=== PATIENT | male | born 1990 | race Caucasian/White ===

== ENCOUNTER 2025-05-25 03:47 | Emergency (ER) | payer BC ==
[~2025-05-25] VITALS: Ht 172.7 cm; Wt 113.0 kg
[2025-05-25 03:49] VITALS: TEMP 36.9; O2SAT 99
[2025-05-25 04:28] LABS: BASOPHILS % 0.4 % (0.0-2.0); EOSINOPHILS % 0.1 % (0.0-5.0); HEMATOCRIT. 31.8 % (42.0-52.0); HEMOGLOBIN. 9.4 g/dL (14.0-18.0); LYMPHOCYTES % 23.4 % (20.0-50.0); MEAN PLATELET VOLUME 9.1 fl (7.4-10.4); MONOCYTES % 5.1 % (2.0-8.0); NEUTROPHILS % 71.0 % (40.0-76.0); PLATELET 322 x1000/uL (130-400); RED BLOOD CELL COUNT 5.14 mill/uL (4.7-6.1); RED CELL DISTRIBUTION WIDTH 19.7 % (11.6-14.6)
[2025-05-25 04:50] LABS: ADD RBC MORPHOLOGY YES
[2025-05-25] MEDS: SODIUM CHLORIDE 0.9% 1,000 ML IV ONE (04:54)
[2025-05-25] MEDS: DIAZEPAM 5 MG/ML 2ML SYR IV ONE ×2 (04:54→06:13)
[2025-05-25 05:33] LABS: CREATININE 1.4 mg/dL (0.6-1.3); UREA NITROGEN BLOOD 16.0 mg/dL (9-23)
[2025-05-25 06:37] VITALS: BP 160/101; PULSE 109; RESP 19; O2SAT 95
[2025-05-25] MEDS ORDERED: FERR1TAB91 MT (06:58)
[2025-05-25] MEDS ORDERED: AMLO5TAB88 MT (06:59)
[2025-05-25 08:28] LABS: PLATELET ESTIMATE NORMAL
== END 2025-05-25 07:14 | disposition home or self-care (01) ==
LOC: ER 03:47
DX: T40.5X1A Poisoning by cocaine, accidental (unintentional), initial encounter (principal); I10 Essential (primary) hypertension; D64.9 Anemia, unspecified; F41.9 Anxiety disorder, unspecified; F14.90 Cocaine use, unspecified, uncomplicated; X58.XXXA Exposure to other specified factors, initial encounter; Y93.89 Activity, other specified; Y92.89 Other specified places as the place of occurrence of the external cause; Y99.8 Other external cause status
CPT/HCPCS: 80048; 80320; 85025; 36415; 71045; 93005; 96361; 96374; 96376; 99285; J3360; J7030; G0480